=== PATIENT | female | born 1990 | race Caucasian/White ===

== ENCOUNTER 2020-06-11 10:15 | Day surgery (SDC) | payer OTHER, SELFPAY ==
[~2020-06-11] VITALS: Ht 160 cm; Wt 85.7 kg
[2020-06-11] MEDS ORDERED: fentaNYL citrate 0.05 MG/ML VIAL ONE (11:47)
[2020-06-11] MEDS ORDERED: MIDAZOLAM 5 MG/5 ML VIAL ONE (11:47)
[2020-06-11] MEDS ORDERED: LIDOCAINE 2% 100 MG/5 ML UJET TP ONE (11:48)
[2020-06-11] MEDS ORDERED: MIDAZOLAM 2 MG/2 ML VIAL IVP ONE (12:20)
[2020-06-11] MEDS ORDERED: LIDOCAINE VISCOUS 2% 20 ML UDC ONE (12:23)
== END 2020-06-11 13:41 | disposition home or self-care (01) ==
LOC: MDS 10:15 → MMU 10:43 → MDS 13:41
PROVIDERS: ATTEND Internal Medicine Gastroenterology
DX: R19.7 Diarrhea, unspecified (principal); E66.9 Obesity, unspecified; K44.9 Diaphragmatic hernia without obstruction or gangrene; Z79.899 Other long term (current) drug therapy; Z20.828 Contact with and (suspected) exposure to other viral communicable diseases
CPT/HCPCS: 36415; 43239; 45330; 81025; 86677; J2250; U0003; J3010

== ENCOUNTER 2020-09-23 13:10 | Emergency (ER) | payer OTHER, SELFPAY ==
[~2020-09-23] VITALS: Ht 160 cm; Wt 86.2 kg
[2020-09-23 13:28] VITALS: BP 140/113
[2020-09-23] MEDS ORDERED: PRED20TA5 PO (15:53)
[2020-09-23] MEDS ORDERED: CEPH-588 PO (15:53)
[2020-09-23] MEDS ORDERED: DIPH25TA53 PO (15:53)
[2020-09-23] MEDS ORDERED: BACITRACIN OINT 500 UNITS/GM PKT TP ONE (15:55)
--- NOTE | 2020-09-23 16:26 | NUR ---
C/O LEFT ANKLE PAIN, REDNESS, SWELLING S/P POSSIBLE BUG BITE X LAST NIGHT.
--- NOTE | 2020-09-23 16:26 | NUR ---
Patient discharged with v/s stable. Written and verbal after care instructions given and explained. Patient alert, oriented and verbalized understanding of instructions. Ambulatory with steady gait. All questions addressed prior to discharge. ID band removed. Patient advised to follow up with PMD. Rx of CEPHALEXIN, DIPHENHYRDRAMINE, PREDNISONE given. Patient educated on indication of medication including possible reaction and side effects. Opportunity to ask questions provided and answered.
[2020-09-23 16:27] VITALS: BP 140/113
== END 2020-09-23 16:26 | disposition home or self-care (01) ==
LOC: MED 13:10
DX: T78.49XA Other allergy, initial encounter (principal); R21 Rash and other nonspecific skin eruption; R03.0 Elevated blood-pressure reading, without diagnosis of hypertension; Z79.899 Other long term (current) drug therapy; X58.XXXA Exposure to other specified factors, initial encounter
CPT/HCPCS: 99283

== ENCOUNTER 2020-09-30 06:29 | Emergency (ER) | payer OTHER ==
[~2020-09-30] VITALS: Ht 162.6 cm; Wt 88.5 kg
[~2020-09-30 06:29] MED LIST: CEPH-588 PO; DIPH25TA53 PO; PRED20TA5 PO
[2020-09-30 06:30] VITALS: BP 154/97
--- NOTE | 2020-09-30 06:48 | NUR ---
Dr. Meyer examining patient.
--- NOTE | 2020-09-30 07:18 | NUR ---
Patient discharged with v/s stable. Written and verbal after care instructions given and explained. Patient verbalized understanding. Ambulatory with steady gait. All questions addressed prior to discharge. Advised to follow up with PMD. PER ERMD, PT TO STOP TAKING PREDNISONE, PT EDUCATED AND VERBALIZED UNDERSTANDING. NO NURSING INTERVENTIONS NEEDED.
== END 2020-09-30 07:18 | disposition home or self-care (01) ==
LOC: MED 06:29
DX: R42 Dizziness and giddiness (principal); T50.905A Adverse effect of unspecified drugs, medicaments and biological substances, initial encounter; Z48.00 Encounter for change or removal of nonsurgical wound dressing; Y92.89 Other specified places as the place of occurrence of the external cause
CPT/HCPCS: 99281; 99282

== ENCOUNTER 2020-11-16 12:54 | Emergency (ER) | payer OTHER ==
[~2020-11-16] VITALS: Ht 160 cm; Wt 88.0 kg
[2020-11-16 13:06] VITALS: BP 122/52
--- NOTE | 2020-11-16 13:35 | NUR ---
30 Y/O FEMALE BIB SELF FOR C/O MID CHEST PAIN X 1 HOUR AGO. CP IS A DULL 5/10 NON-RADIATING. S1S2 HEARD AUSCULTATED. PT NOTED WITH BILAT FOOT EDEMA, SKIN IS RED WITH VARIOUS BUG BITE-LIKE CIRCLES. PT STATES SHE HAS HAD THESE TYPES OF BITES IN THE PAST. BILAT FEET ARE TENDER/WARM TO TOUCH. BILAT PEDAL PULSES STRONG/PALPABLE. PMHX: HLD, HEART MURMUR ALLERGIES: BUG BITES HOME MEDS: CLARITIN
--- NOTE | 2020-11-16 13:46 | NUR ---
EKG DONE AT BEDSIDE, SAM WHALEY MADE AWARE
[2020-11-16] MEDS ORDERED: HYDR28CR38 TP (14:26)
[2020-11-16 15:06] VITALS: BP 124/75
--- NOTE | 2020-11-16 15:09 | NUR ---
Patient discharged with v/s stable. Written and verbal after care instructions given and explained. Patient alert, oriented and verbalized understanding of instructions. Ambulatory with steady gait. All questions addressed prior to discharge. ID band removed. Patient advised to follow up with PMD. Rx of HYDROCORTISONE/ALOE VERA given. Patient educated on indication of medication including possible reaction and side effects. Opportunity to ask questions provided and answered WITH TEACHBACK.
== END 2020-11-16 15:09 | disposition home or self-care (01) ==
LOC: MED 12:54
DX: S80.862A Insect bite (nonvenomous), left lower leg, initial encounter (principal); S80.861A Insect bite (nonvenomous), right lower leg, initial encounter; I51.9 Heart disease, unspecified; E78.00 Pure hypercholesterolemia, unspecified; K21.9 Gastro-esophageal reflux disease without esophagitis; F41.9 Anxiety disorder, unspecified
CPT/HCPCS: 93005; 99283

== ENCOUNTER 2021-02-11 13:09 | Emergency (ER) | payer OTHER ==
[~2021-02-11] VITALS: Ht 160 cm; Wt 88.5 kg
[~2021-02-11 13:09] MED LIST changes: +HYDR28CR38 TP
[2021-02-11 13:18] VITALS: BP 125/78
--- NOTE | 2021-02-11 13:27 | NUR ---
PT AMBULATED TO BED, STEADY GAIT
--- NOTE | 2021-02-11 13:29 | NUR ---
DR ACOSTA AT PT BEDSIDE FOR FURTHER EVALUATION.
[2021-02-11] MEDS ORDERED: KETOROLAC 30 MG/ML VIAL IVP ONE (13:35)
[2021-02-11] MEDS ORDERED: NACL 0.9% 1,000 ML IV SCH (13:35)
--- NOTE | 2021-02-11 13:39 | NUR ---
IV ESTABLISHED TO RIGHT AC 22G, GOOD BLOOD RETURN, LABS COLLECTED GAVE TO FLASK HANDLER AT PT BEDSIDE.
--- NOTE | 2021-02-11 13:40 | NUR ---
30 Y/O FEMALE C/O ABDOMINAL PAIN 09/25 DESCRIBES ACHING NON-RADIATING [id number]. DENIES FEVER/CHILLS. DENIES N/V/D. ABD IS SOFT, ROUND, BOWEL SOUNDS PRPESENT X4, LAST BM 02/10/21. PMH: CYSTS NKA
--- NOTE | 2021-02-11 13:40 | NUR ---
Note chatoone in EDM - 02/11/21 at 1435 by [email or web address] 30 Y/O FEMALE C/O RIGHT FLANK PAIN 11/26 DESCRIBES BURNING NON-RADIATING. PT STATES +DYSURIA, DENIES HEMATURIA, DENIES DISCHARGE. DENIES FEVER/CHILLS. DENIES N/V/D. PMH: DM ALLERGIES: IBUPROFEN
--- NOTE | 2021-02-11 13:44 | NUR ---
PT TAKEN TO CT VIA W/C.
[2021-02-11 13:47] LABS: BASOPHILS # (AUTO) 0.1 K/uL (0.00-0.22); BASOPHILS % (AUTO) 0.8 % (0.0-2.0); EOSINOPHILS # (AUTO) 0.4 K/uL (0-0.4); EOSINOPHILS % (AUTO) 3.3 % (0.0-4.0); HEMATOCRIT 40.7 % (36-48); HEMOGLOBIN 13.7 g/dL (12.0-16.0); LYMPHOCYTES # (AUTO) 4.6 K/uL (2.5-16.5); LYMPHOCYTES % (AUTO) 44.2 % (20.5-51.1); MEAN CORPUSCULAR HEMOGLOBIN 29 pg (27-31); MEAN CORPUSCULAR HGB CONC 34 g/dL (33-37); MEAN CORPUSCULAR VOLUME 85.2 fL (80-94); MONOCYTES % (AUTO) 9.4 % (1.7-9.3); NEUTROPHILS # (AUTO) 4.4 K/uL (1.8-7.7); NEUTROPHILS % (AUTO) 42.3 % (42.2-75.2); PLATELET COUNT (AUTO) 298 K/uL (140-450); RED BLOOD CELL COUNT(AUTO) 4.78 MIL/uL (4.20-5.40); RED CELL DISTRIBUTION WIDTH 13.9 % (11.6-13.7); WHITE BLOOD COUNT (AUTO) 10.5 K/uL (4.8-10.8)
[2021-02-11 13:47] LABS: APPEARANCE,URINE CLEAR (CLEAR); BILIRUBIN,URINE NEGATIVE (NEGATIVE); BLOOD, URINE NEGATIVE (NEGATIVE); COLOR,URINE YELLOW (YELLOW); LEUKOCYTE ESTERASE ,URINE NEGATIVE (NEGATIVE); NITRITE, URINE NEGATIVE (NEGATIVE); UGLUCOSE NEGATIVE (NEGATIVE)
--- NOTE | 2021-02-11 13:51 | NUR ---
PT TAKEN TO ER BED 4 VIA W/C.
[2021-02-11 14:09] LABS: ALBUMIN 3.7 g/dL (3.4-5.0); ANION GAP 12.2 (8-16); CARBON DIOXIDE 27.9 mmol/L (21-32); CREATININE 0.7 mg/dL (0.6-1.3); POTASSIUM 4.1 mmol/L (3.5-5.1); TOTAL BILIRUBIN 0.2 mg/dL (0.0-1.0)
--- NOTE | 2021-02-11 14:57 | NUR ---
US TECH AT PT BEDSIDE.
--- NOTE | 2021-02-11 15:30 | NUR ---
PT RESTING, VISIBLE EQUAL RISE AND FALL OF CHEST, VSS, WILL CONTINUE TO MONITOR.
[2021-02-11] MEDS ORDERED: MIRABULK PO (16:03)
[2021-02-11 16:27] VITALS: BP 140/77
--- NOTE | 2021-02-11 16:27 | NUR ---
Patient discharged with v/s stable. Written and verbal after care instructions given FOR ABDOMINAL PAIN and explained. Patient alert, oriented and verbalized understanding of instructions. Ambulatory with steady gait. All questions addressed prior to discharge. ID band removed. Patient advised to follow up with PMD. Rx of MIRALAX given. Patient educated on indication of medication including possible reaction and side effects. Opportunity to ask questions provided and answered.
== END 2021-02-11 16:27 | disposition home or self-care (01) ==
LOC: MED 13:09
DX: N83.201 Unspecified ovarian cyst, right side (principal); K59.00 Constipation, unspecified; Z79.899 Other long term (current) drug therapy
CPT/HCPCS: 36415; 74176; 76856; 80053; 81003; 81025; 83690; 85025; 96361; 96374; 99285; J1885; Q0092

== ENCOUNTER 2021-04-14 14:54 | Emergency (ER) | payer OTHER ==
[~2021-04-14] VITALS: Ht 160 cm; Wt 87.1 kg
[~2021-04-14 14:54] MED LIST changes: +MIRABULK PO
[2021-04-14 15:00] VITALS: BP 123/67
--- NOTE | 2021-04-14 15:18 | NUR ---
Patient being evaluated by LAUREN SOLANO at [facility].
--- NOTE | 2021-04-14 15:21 | NUR ---
C/O WEAKNESS, DIZZINESS, 9/10 SMITH , NAUSEA X 1 WEEK. COVID TESTED NEGATIVE 3 DAYS AGO. PMH: HEART MURMUR
[2021-04-14] MEDS ORDERED: ONDANSETRON 4 MG ODT PO ONE (15:30)
--- NOTE | 2021-04-14 15:44 | NUR ---
EKG AT THRIAGE ROOM.
[2021-04-14] MEDS ORDERED: MECLIZINE 25 MG TAB PO ONE (15:45)
--- NOTE | 2021-04-14 15:56 | NUR ---
PT TAKEN TO CT VIA W/C, ACCOMPANIED BY SPORTS BOOKMAKER.
[2021-04-14 16:36] VITALS: BP 124/85
[2021-04-14] MEDS ORDERED: MECL-303 PO (16:36)
[2021-04-14] MEDS ORDERED: ONDA-188 SL (16:36)
[2021-04-14] MEDS ORDERED: ACET-10509 PO (16:36)
--- NOTE | 2021-04-14 16:36 | NUR ---
Patient discharged with v/s stable. Written and verbal after care instructions given and explained. Patient alert, oriented and verbalized understanding of instructions. Ambulatory with steady gait. All questions addressed prior to discharge. ID band removed. Patient advised to follow up with PMD. Rx of ACETAMINOPHEN, ANTIVERT, ZOFRAN given. Patient educated on indication of medication including possible reaction and side effects. Opportunity to ask questions provided and answered.
== END 2021-04-14 16:36 | disposition home or self-care (01) ==
LOC: MED 14:54
DX: S09.8XXA Other specified injuries of head, initial encounter (principal); I63.81 Other cerebral infarction due to occlusion or stenosis of small artery; X58.XXXA Exposure to other specified factors, initial encounter; Y93.89 Activity, other specified; Y92.89 Other specified places as the place of occurrence of the external cause; Y99.8 Other external cause status
CPT/HCPCS: 70450; 81025; 93005; 99284; J8597; Q0162

== ENCOUNTER 2021-07-27 07:46 | Emergency (ER) | payer OTHER ==
[~2021-07-27] VITALS: Ht 160 cm; Wt 92.1 kg
[~2021-07-27 07:46] MED LIST changes: +ACET-10509 PO; +MECL-303 PO; +ONDA-188 SL
[2021-07-27 07:50] VITALS: BP 129/87
--- NOTE | 2021-07-27 07:52 | NUR ---
PT AMBULATED TO ER BED 2 WITH A STEADY GAIT.
--- NOTE | 2021-07-27 07:55 | NUR ---
PT AMBULATED TO RESTROOM FOR UA COLLECTION.
--- NOTE | 2021-07-27 08:02 | NUR ---
31 Y/O FEMALE C/O INTERMITTENT EPIGASTRIC PAIN 10/26 DESCRIBES BURNING WITH N/V/D AND SINUS PRESSURE X1 WEEK. PT STATES SINUS PRESSURE X1WEEK. PT TOOK ACID REFLUX RX WITH NO RELIEF. DENIES FEVERS/CHILLS. DENIES PMH NKA
--- NOTE | 2021-07-27 08:07 | NUR ---
DR. CARLOS AT PT BEDSIDE FOR FURTHER EVALUATION.
[2021-07-27] MEDS ORDERED: FAMOTIDINE 20 MG/2 ML VIAL IVP ONE (08:15)
[2021-07-27] MEDS ORDERED: DICYCLOMINE 10 MG CAP PO ONE (08:15)
[2021-07-27] MEDS ORDERED: ONDANSETRON 4 MG/2 ML VIAL IVP ONE (08:15)
--- NOTE | 2021-07-27 08:18 | NUR ---
OPHTHALMIC TECHNICIAN AT PT BEDSIDE.
[2021-07-27 08:39] LABS: BASOPHILS # (AUTO) 0.1 K/uL (0.00-0.22); BASOPHILS % (AUTO) 0.6 % (0.0-2.0); EOSINOPHILS # (AUTO) 0.1 K/uL (0-0.4); HEMOGLOBIN 13.8 g/dL (12.0-16.0); LYMPHOCYTES # (AUTO) 3.1 K/uL (2.5-16.5); LYMPHOCYTES % (AUTO) 30.5 % (20.5-51.1); MEAN CORPUSCULAR HEMOGLOBIN 29 pg (27-31); MEAN CORPUSCULAR HGB CONC 33 g/dL (33-37); MEAN CORPUSCULAR VOLUME 86.8 fL (80-94); MONOCYTES # (AUTO) 0.6 K/uL (0.8-1.0); MONOCYTES % (AUTO) 5.6 % (1.7-9.3); NEUTROPHILS # (AUTO) 6.4 K/uL (1.8-7.7); NEUTROPHILS % (AUTO) 62.3 % (42.2-75.2); PLATELET COUNT (AUTO) 313 K/uL (140-450); RED BLOOD CELL COUNT(AUTO) 4.84 MIL/uL (4.20-5.40); RED CELL DISTRIBUTION WIDTH 13.5 % (11.6-13.7); WHITE BLOOD COUNT (AUTO) 10.2 K/uL (4.8-10.8)
[2021-07-27 09:19] LABS: ALBUMIN 3.8 g/dL (3.4-5.0); ANION GAP 13.6 (8-16); CARBON DIOXIDE 24.6 mmol/L (21-32); CREATININE 0.7 mg/dL (0.6-1.3); POTASSIUM 4.2 mmol/L (3.5-5.1); TOTAL BILIRUBIN 0.3 mg/dL (0.0-1.0)
[2021-07-27] MEDS ORDERED: ALUM355S59 PO (09:35)
[2021-07-27] MEDS ORDERED: FAMO-90 PO (09:35)
--- NOTE | 2021-07-27 09:45 | NUR ---
PT RESTING IN BED, VSS, WILL CONTINUE TO MONITOR.
[2021-07-27 10:04] VITALS: BP 129/87
--- NOTE | 2021-07-27 10:05 | NUR ---
Patient discharged with v/s stable. Written and verbal after care instructions given FOR INDIGESTION AND ABDOMINAL PAIN and explained. Patient alert, oriented and verbalized understanding of instructions. Ambulatory with steady gait. All questions addressed prior to discharge. ID band removed. Patient advised to follow up with PMD. Rx of MAALOX AND PEPCID given. Patient educated on indication of medication including possible reaction and side effects. Opportunity to ask questions provided and answered.
[2021-07-28] MEDS ORDERED: NAPR-54 PO (13:53)
[2021-07-28] MEDS ORDERED: BEN10 PO (13:53)
== END 2021-07-27 10:04 | disposition home or self-care (01) ==
LOC: MED 07:46
DX: K21.9 Gastro-esophageal reflux disease without esophagitis (principal); Z79.899 Other long term (current) drug therapy
CPT/HCPCS: 36415; 80053; 81002; 81025; 83690; 85025; 96374; 96375; 99284; J2405; J3490

== ENCOUNTER 2021-07-28 10:37 | Emergency (ER) | payer OTHER ==
[~2021-07-28] VITALS: Ht 160 cm; Wt 90.9 kg
[~2021-07-28 10:37] MED LIST changes: +ALUM355S59 PO; +FAMO-90 PO
--- NOTE | 2021-07-28 10:47 | NUR ---
patient ambulated to bed 8.
[2021-07-28 10:50] VITALS: BP 123/43
--- NOTE | 2021-07-28 10:57 | NUR ---
31 Y/O FEMALE BIB SELF C/O UPPER EPIGASTRIC PAIN RADIATING TOWARDS THE SIDES, SHARP 8/10, NAUSEA AND VOMITING. PT STATES THAT SHE WAS IN THE ER YESTERDAY FOR THE SAME ISSUE. TOOK ZOFRAN AND MAALOX WITH MINIMAL EFFECT. STATES THAT THE VOMITING OCCURS IMMEDIATELY AFTER EATING. PT STATED THAT SHE WENT TO URGENT CARE LAST WEEK FOR A UTI AND WAS PRESCRIBED KEFLEX, PT STOPPED TAKING MEDICATION. PMH: HEART MURMUR, GERD NKA
[2021-07-28] MEDS ORDERED: KETOROLAC 30 MG/ML VIAL IM ONE (11:05)
[2021-07-28] MEDS ORDERED: ONDANSETRON 4 MG/2 ML VIAL IVP ONE (11:05)
[2021-07-28] MEDS ORDERED: DICYCLOMINE 20 MG/2 ML VIAL IM ONE (11:05)
--- NOTE | 2021-07-28 11:35 | NUR ---
PT WHEELED TO CT VIA WC
[2021-07-28 11:36] LABS: BASOPHILS # (AUTO) 0.1 K/uL (0.00-0.22); BASOPHILS % (AUTO) 0.5 % (0.0-2.0); EOSINOPHILS # (AUTO) 0.2 K/uL (0-0.4); EOSINOPHILS % (AUTO) 2.3 % (0.0-4.0); HEMATOCRIT 41.4 % (36-48); HEMOGLOBIN 13.6 g/dL (12.0-16.0); LYMPHOCYTES # (AUTO) 3.8 K/uL (2.5-16.5); LYMPHOCYTES % (AUTO) 36.2 % (20.5-51.1); MEAN CORPUSCULAR HEMOGLOBIN 29 pg (27-31); MEAN CORPUSCULAR HGB CONC 33 g/dL (33-37); MEAN CORPUSCULAR VOLUME 86.9 fL (80-94); MONOCYTES # (AUTO) 0.7 K/uL (0.8-1.0); MONOCYTES % (AUTO) 6.9 % (1.7-9.3); NEUTROPHILS # (AUTO) 5.7 K/uL (1.8-7.7); NEUTROPHILS % (AUTO) 54.1 % (42.2-75.2); PLATELET COUNT (AUTO) 322 K/uL (140-450); RED BLOOD CELL COUNT(AUTO) 4.76 MIL/uL (4.20-5.40); RED CELL DISTRIBUTION WIDTH 13.8 % (11.6-13.7); WHITE BLOOD COUNT (AUTO) 10.5 K/uL (4.8-10.8)
--- NOTE | 2021-07-28 11:43 | NUR ---
PT BACK FROM CT
[2021-07-28 11:47] LABS: ALBUMIN 3.9 g/dL (3.4-5.0); ANION GAP 11.9 (8-16); CARBON DIOXIDE 25.9 mmol/L (21-32); CREATININE 0.8 mg/dL (0.6-1.3); POTASSIUM 3.8 mmol/L (3.5-5.1); TOTAL BILIRUBIN 0.2 mg/dL (0.0-1.0)
--- NOTE | 2021-07-28 12:10 | NUR ---
PT VERBALIZED DECREASE IN NAUSEA, DECREASE IN PAIN SENSATION FROM A 8/10 SHARP TO 3/10 "ACHING"
--- NOTE | 2021-07-28 12:36 | NUR ---
Ultrasound at bedside.
[2021-07-28 13:49] VITALS: BP 118/68
[2021-07-28] MEDS ORDERED: NAPR-54 PO (13:53)
[2021-07-28] MEDS ORDERED: BEN10 PO (13:53)
--- NOTE | 2021-07-28 14:23 | NUR ---
Patient discharged with v/s stable. Written and verbal after care instructions ABOUT ABD PAIN given and explained. Patient alert, oriented and verbalized understanding of instructions. Ambulatory with steady gait. All questions addressed prior to discharge. ID band removed. Patient advised to follow up with PMD. Rx of BENTYL, NAPROXEN given. Patient educated on indication of medication including possible reaction and side effects. Opportunity to ask questions provided and answered.
== END 2021-07-28 14:23 | disposition home or self-care (01) ==
LOC: MED 10:37
DX: N83.209 Unspecified ovarian cyst, unspecified side (principal); Z20.822 Contact with and (suspected) exposure to COVID-19; R11.10 Vomiting, unspecified; K21.9 Gastro-esophageal reflux disease without esophagitis; Z79.899 Other long term (current) drug therapy
CPT/HCPCS: 36415; 74176; 76856; 80053; 81002; 81025; 83690; 85025; 93976; 96372; 96374; 99285; J0500; J1885; J2405; Q0092

== ENCOUNTER 2021-08-06 13:22 | Emergency (ER) | payer OTHER ==
[~2021-08-06] VITALS: Ht 160 cm; Wt 92.1 kg
[~2021-08-06 13:22] MED LIST changes: +BEN10 PO; +NAPR-54 PO
[2021-08-06 13:27] VITALS: BP 129/83
--- NOTE | 2021-08-06 13:46 | NUR ---
31 FEMALE BIB SELF C/O OF RIGHT FLANK PAIN DULL 7/10, RADIATING TO THE LOWER BACK. DENIES ANY URINARY SYMPTOMS, DENIED ANY N/V/D OR FEVER. DENIED ANY MEDICATION FOR PAIN, PAIN EXACERBATED BY MOVEMENT. NKA PMH: OVARIAN CYSTS
--- NOTE | 2021-08-06 13:52 | NUR ---
LAUREN SOLANO AT BEDSIDE FOR EVAL
[2021-08-06] MEDS ORDERED: KETOROLAC 15 MG/ML VIAL IVP ONE (14:10)
[2021-08-06] MEDS ORDERED: NACL 0.9% 1,000 ML IV ONE (14:45)
[2021-08-06 15:19] LABS: BASOPHILS # (AUTO) 0.1 K/uL (0.00-0.22); EOSINOPHILS # (AUTO) 0.3 K/uL (0-0.4); MEAN CORPUSCULAR VOLUME 85.5 fL (80-94); WHITE BLOOD COUNT (AUTO) 11.3 K/uL (4.8-10.8)
[2021-08-06 15:23] LABS: BASOPHILS % (AUTO) 0.5 % (0.0-2.0); EOSINOPHILS % (AUTO) 2.2 % (0.0-4.0); HEMATOCRIT 43.7 % (36-48); HEMOGLOBIN 14.4 g/dL (12.0-16.0); LYMPHOCYTES # (AUTO) 4.1 K/uL (2.5-16.5); LYMPHOCYTES % (AUTO) 35.9 % (20.5-51.1); MEAN CORPUSCULAR HEMOGLOBIN 28 pg (27-31); MEAN CORPUSCULAR HGB CONC 33 g/dL (33-37); MONOCYTES # (AUTO) 0.9 K/uL (0.8-1.0); MONOCYTES % (AUTO) 8.2 % (1.7-9.3); NEUTROPHILS % (AUTO) 53.2 % (42.2-75.2); PLATELET COUNT (AUTO) 234 K/uL (140-450); RED BLOOD CELL COUNT(AUTO) 5.12 MIL/uL (4.20-5.40); RED CELL DISTRIBUTION WIDTH 13.8 % (11.6-13.7)
[2021-08-06 15:28] LABS: ALBUMIN 3.7 g/dL (3.4-5.0); ANION GAP 11.5 (8-16); CARBON DIOXIDE 27.9 mmol/L (21-32); CREATININE 0.7 mg/dL (0.6-1.3); POTASSIUM 4.4 mmol/L (3.5-5.1); TOTAL BILIRUBIN 0.3 mg/dL (0.0-1.0)
[2021-08-06 16:00] VITALS: BP 147/75
--- NOTE | 2021-08-06 16:02 | NUR ---
PT WHEELED TO CT VIA WC
[2021-08-06] MEDS ORDERED: CYCL-711 PO (16:53)
[2021-08-06] MEDS ORDERED: IBUP-2213 PO (16:53)
--- NOTE | 2021-08-06 17:04 | NUR ---
Patient discharged with v/s stable. Written and verbal after care instructions given and explained. Patient alert, oriented and verbalized understanding of instructions. Ambulatory with steady gait. All questions addressed prior to discharge. ID band removed. Patient advised to follow up with PMD. Rx of FLEXERIL, MOTRIN given. Patient educated on indication of medication including possible reaction and side effects. Opportunity to ask questions provided and answered.
== END 2021-08-06 17:04 | disposition home or self-care (01) ==
LOC: MED 13:22
DX: S39.012A Strain of muscle, fascia and tendon of lower back, initial encounter (principal); R10.9 Unspecified abdominal pain; R03.0 Elevated blood-pressure reading, without diagnosis of hypertension; K21.9 Gastro-esophageal reflux disease without esophagitis; Z79.899 Other long term (current) drug therapy; X58.XXXA Exposure to other specified factors, initial encounter; Y93.89 Activity, other specified; Y92.89 Other specified places as the place of occurrence of the external cause; Y99.8 Other external cause status
CPT/HCPCS: 36415; 74176; 80053; 81002; 81025; 83690; 85025; 96374; 99284; J1885; J7030; 96361